=== PATIENT | female | born 1980 | race Caucasian/White ===

== ENCOUNTER 2016-11-20 12:41 | Emergency (ER) | payer MEDICAID ==
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
[2016-11-20] MEDS ORDERED: OXYCODONE-ACETAMINOPHEN 5-325 MG TABLET PO ONE (14:29)
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
[2016-11-20 15:35] VITALS: BP 105/70
== END 2016-11-20 15:52 | disposition home or self-care (01) ==
LOC: ER 12:41
DX: S05.11XA Contusion of eyeball and orbital tissues, right eye, initial encounter (principal); S16.1XXA Strain of muscle, fascia and tendon at neck level, initial encounter; M54.9 Dorsalgia, unspecified; R52 Pain, unspecified; R51 Headache; Y09 Assault by unspecified means; F17.210 Nicotine dependence, cigarettes, uncomplicated
CPT/HCPCS: 70450; 71020; 72125; 99284

== ENCOUNTER 2017-04-27 04:43 | Emergency (ER) | payer MEDICAID ==
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
[2017-04-27] MEDS ORDERED: KETOROLAC TROMETHAMINE INJ/PF 30 MG/1 ML SDV IV ONE (05:47)
--- NOTE | 2017-04-27 05:48 | RADIOLOGY REPORT (SQ) ---
EXAM DESCRIPTION: SHOULDER RIGHT 2 OR MORE VIEWS COMPLETED DATE/TIME: 04/27/2017 5:30 am REASON FOR STUDY: INJURY COMPARISON: 320 NUMBER OF VIEWS: Three views. TECHNIQUE: Internal rotation, external rotation, and Y view images acquired of the right shoulder. LIMITATIONS: None. FINDINGS: MINERALIZATION: Normal. BONES: 0.5 cm lytic lesion of the right distal clavicle at the acromioclavicular joint new compared w ith prior radiographs from 10/18/2010. No evidence of fracture dislocation. JOINTS: No dislocation. VISUALIZED LUNGS AND RIBS: No pneumothorax. No rib fracture. SOFT TISSUES: No radiopaque foreign body. OTHER: No other significant finding. IMPRESSION: 0.5 cm lucency of the distal right clavicle which may indicate posttraumatic osteolysis, subchondral degenerative cyst, or arthritic erosion. TECHNICAL DOCUMENTATION: JOB ID: [id number] [email or web address]- All Rights Reserved
[2017-04-27] MEDS ORDERED: KETOROLAC TROMETHAMINE INJ/PF 30 MG/1 ML SDV IM ONE (05:59)
[2017-04-27 06:11] VITALS: BP 127/83
== END 2017-04-27 06:11 | disposition home or self-care (01) ==
LOC: ER 04:43
DX: M25.511 Pain in right shoulder (principal); Y09 Assault by unspecified means
CPT/HCPCS: 99283; 96372; 73030; L3650; J1885

== ENCOUNTER 2017-12-05 18:52 | Emergency (ER) | payer MEDICAID ==
[2017-12-05] MEDS ORDERED: ONDANSETRON 4 MG TAB.RAPDIS PO ONE (20:33)
--- NOTE | 2017-12-05 20:35 | ER Document Report ---
ED Medical Screen (RME) - General Chief Complaint: Lower Abdominal Pain Stated Complaint: PELVIC PAIN Time Seen by Provider: 12/05/17 20:31 Mode of Arrival: Medic Information source: Patient Notes: Patient states that she was doing jumping jacks this evening and had a sudden onset of sharp lower pelvic pain around 6 PM. Patient reports nausea. Patient states the pain radiates to right lower back area. Patient denies any vaginal bleeding or urinary symptoms. Patient does report that she has a history of a cervical tumor which she is supposed to have a hysterectomy. I have greeted and performed a rapid initial assessment of this patient. A comprehensive ED assessment and evaluation of the patient, analysis of test results and completion of the medical decision making process will be conducted by additional ED providers. TRAVEL OUTSIDE OF THE [place] IN LAST 30 DAYS: No - Related Data Allergies/Adverse Reactions: No Known Allergies Allergy (Verified 12/05/17 18:54) Past Medical History - Social History Frequency of alcohol use: None - Past Medical History Cardiac Medical History: Denies: Hx Coronary Artery Disease, Hx Heart Attack, Hx Hypertension Pulmonary Medical History: Denies: Hx Asthma, Hx Bronchitis, Hx COPD, Hx Pneumonia Neurological Medical History: Reports: Hx Migraine, Hx Seizures - last seizure . Denies: Hx Cerebrovascular Accident Renal/ Medical History: Denies: Hx Peritoneal Dialysis Musculoskeltal Medical History: Denies Hx Arthritis Skin Medical History: Denies Hx MRSA Psychiatric Medical History: Reports: Hx Anxiety, Hx Depression Past Surgical History: Reports: Hx Cholecystectomy, Hx Hysterectomy, Hx Orthopedic Surgery - R foot - Immunizations Immunizations up to date: Yes Hx Diphtheria, Pertussis, Tetanus Vaccination: Yes - more than five years Physical Exam - Vital signs Vitals: Temp Pulse Resp BP Pulse Ox 98.5 F 91 15 132/92 H 97 12/05/17 18:56 12/05/17 18:56 12/05/17 18:56 12/05/17 18:56 12/05/17 18:56 - Abdominal Tenderness: Tender - Lower pelvic tenderness Course - Vital Signs Vital signs: Temp Pulse Resp BP Pulse Ox 98.5 F 91 15 132/92 H 97 12/05/17 18:56 12/05/17 18:56 12/05/17 18:56 12/05/17 18:56 12/05/17 18:56
[2017-12-05] MEDS ORDERED: OXYCODONE-ACETAMINOPHEN 5-325 MG TABLET PO ONE (20:43)
[2017-12-05 21:03] LABS: ABSOLUTE BASOPHILS # (AUTO) 0.1 10^3/uL (0.0-0.2); ABSOLUTE EOSINOPHILS # (AUTO) 0.4 10^3/uL (0.0-0.6); ABSOLUTE MONOCYTES (AUTO) 0.8 10^3/uL (0.1-1.4); ABSOLUTE NEUT (AUTO) 9.1 10^3/uL (1.7-8.2); BASOPHILS % (AUTO) 0.6 % (0-2); EOSINOPHILS % (AUTO) 2.5 % (0-6); HEMATOCRIT 46.4 % (36.0-47.0); HEMOGLOBIN 15.8 g/dL (12.0-15.5); LYMPHOCYTES % (AUTO) 32.3 % (13-45); MEAN CORPUSCULAR HEMOGLOBIN 30.3 pg (27.0-33.4); MEAN CORPUSCULAR HGB CONC 34.1 g/dL (32.0-36.0); MEAN CORPUSCULAR VOLUME 89 fl (80-97); MONOCYTES % (AUTO) 5.1 % (3-13); PLATELET COUNT 344 10^3/uL (150-450); RED BLOOD COUNT 5.23 10^6/uL (3.72-5.28); RED CELL DISTRIBUTION WIDTH 13.1 % (11.5-14.0); SEGMENTED NEUTROPHILS % (AUTO) 59.5 % (42-78); TOTAL CELLS COUNTED % (AUTO) 100 %; WHITE BLOOD COUNT 15.3 10^3/uL (4.0-10.5)
[2017-12-05 21:25] LABS: ALANINE AMINOTRANSFERASE 54 U/L (9-52); ALBUMIN 4.1 g/dL (3.5-5.0); ALKALINE PHOSPHATASE 72 U/L (38-126); ANION GAP 11 (5-19); ASPARTATE AMINO TRANSFERASE 62 U/L (14-36); BILIRUBIN,DIRECT 0.2 mg/dL (0.0-0.4); BILIRUBIN,TOTAL 0.2 mg/dL (0.2-1.3); BLOOD UREA NITROGEN 7 mg/dL (7-20); CALCIUM 10.3 mg/dL (8.4-10.2); CARBON DIOXIDE 23 mmol/L (22-30); CHLORIDE 107 mmol/L (98-107); GLUCOSE 89 mg/dL (75-110); POTASSIUM 4.6 mmol/L (3.6-5.0); SODIUM 141.4 mmol/L (137-145); TOTAL PROTEIN 6.7 g/dL (6.3-8.2)
[2017-12-05] MEDS ORDERED: FENTANYL CITRATE INJ/PF 100 MCG/2 ML AMPUL IM ONE (22:56)
--- NOTE | 2017-12-05 23:01 | ER Document Report ---
ED General - General Chief Complaint: Lower Abdominal Pain Stated Complaint: PELVIC PAIN Time Seen by Provider: 12/05/17 20:31 Mode of Arrival: Medic Information source: Patient Notes: 37 yr old female presents with lwoer abd pain after doing jumping florinda and feeling a tearing snesaiton in the lwoer abdomen. pt dneies any fevers or chills , notes pain with range of motion denies any other trauma pt notes hx of nonmalignant cervical tumor TRAVEL OUTSIDE OF THE [place] IN LAST 30 DAYS: No - HPI Onset: Just prior to arrival Onset/Duration: Sudden Quality of pain: Sharp Severity: Moderate Pain Level: 4 Associated symptoms: Body/muscle aches Exacerbated by: Movement, Walking Relieved by: Denies Similar symptoms previously: No Recently seen / treated by doctor: No - Related Data Allergies/Adverse Reactions: No Known Allergies Allergy (Verified 12/05/17 18:54) Past Medical History - General Information source: Patient - Social History Smoking Status: Current Every Day Smoker Cigarette use (# per day): Yes Chew tobacco use (# tins/day): No Smoking Education Provided: No Frequency of alcohol use: None Family History: Reviewed & Not Pertinent Patient has suicidal ideation: No Patient has homicidal ideation: No - Past Medical History Cardiac Medical History: Denies: Hx Coronary Artery Disease, Hx Heart Attack, Hx Hypertension Pulmonary Medical History: Denies: Hx Asthma, Hx Bronchitis, Hx COPD, Hx Pneumonia Neurological Medical History: Reports: Hx Migraine, Hx Seizures - last seizure . Denies: Hx Cerebrovascular Accident Renal/ Medical History: Denies: Hx Peritoneal Dialysis Musculoskeltal Medical History: Denies Hx Arthritis Skin Medical History: Denies Hx MRSA Psychiatric Medical History: Reports: Hx Anxiety, Hx Depression Past Surgical History: Reports: Hx Cholecystectomy, Hx Hysterectomy, Hx Orthopedic Surgery - R foot - Immunizations Immunizations up to date: Yes Hx Diphtheria, Pertussis, Tetanus Vaccination: Yes - more than five years Review of Systems - Review of Systems Notes: REVIEW OF SYSTEMS: CONSTITUTIONAL : Denies fever, chills, or sweats. Denies recent illness. EENT: Denies eye, ear, throat, or mouth pain or symptoms. Denies nasal or sinus congestion or discharge. Denies throat, tongue, or mouth swelling or difficulty swallowing. CARDIOVASCULAR: Denies chest pain. Denies palpitations or racing or irregular heart beat. Denies ankle edema. RESPIRATORY: Denies cough, cold, or chest congestion. Denies shortness of breath, difficulty breathing, or wheezing. GASTROINTESTINAL: Admits to bilateral lower quadrant abdominal pain GENITOURINARY: Denies difficulty urinating, painful urination, burning, frequency, blood in urine, or discharge. FEMALE GENITOURINARY: Denies vaginal bleeding, heavy or abnormal periods, irregular periods. Denies vaginal discharge or odor. MUSCULOSKELETAL: Denies back or neck pain or stiffness. Denies joint pain or swelling. SKIN: Denies rash, lesions or sores. HEMATOLOGIC : Denies easy bruising or bleeding. LYMPHATIC: Denies swollen, enlarged glands. NEUROLOGICAL: Denies confusion or altered mental status. Denies passing out or loss of consciousness. Denies dizziness or lightheadedness. Denies headache. Denies weakness or paralysis or loss of use of either side. Denies problems with gait or speech. Denies sensory loss, numbness, or tingling. Denies seizures. PSYCHIATRIC: Denies anxiety or stress. Denies depression, suicidal ideation, or homicidal ideation. ALL OTHER SYSTEMS REVIEWED AND NEGATIVE. PHYSICAL EXAMINATION: GENERAL: Well-appearing, well-nourished and in no acute distress. HEAD: Atraumatic, normocephalic. EYES: Pupils equal round and reactive to light, extraocular movements intact, conjunctiva are normal. ENT: Nares patent, oropharynx clear without exudates. Moist mucous membranes. NECK: Normal range of motion, supple without lymphadenopathy LUNGS: Breath sounds clear to auscultation bilaterally and equal. No wheezes rales or rhonchi. HEART: Regular rate and rhythm without murmurs ABDOMEN: Soft, tender lower abd no pelvic pain Female : deferred Musculoskeletal: Normal range of motion, no pitting or edema. No cyanosis. NEUROLOGICAL: Cranial nerves grossly intact. Normal speech, normal gait. Normal sensory, motor exams PSYCH: Normal mood, normal affect. SKIN: Warm, Dry, normal turgor, no rashes or lesions noted. Dictation was performed using [employer] recognition software -: Yes ROS unobtainable due to patient's medical condition Physical Exam - Vital signs Vitals: Temp Pulse Resp BP Pulse Ox 98.5 F 91 15 132/92 H 97 12/05/17 18:56 12/05/17 18:56 12/05/17 18:56 12/05/17 18:56 12/05/17 18:56 Course - Re-evaluation Re-evalutation: 12/05/17 23:01 Patient's presentation is most consistent with a muscle tear given the traumatic injury. She overall does appear to have pain, and given pain control , ultrasound is pending to evaluate for the cervical tumor but this does not appear to be the cause of the patient's symptoms 12/06/17 04:59 u/s report consistent with nabothian cyst, otherwise she is stable, report given to patient by cell phone After performing a Medical Screening Examination, I estimate there is LOW risk for ACUTE APPENDICITIS, BOWEL OBSTRUCTION, ACUTE CHOLECYSTITIS, PERFORATED DIVERTICULITIS, INCARCERATED HERNIA, PANCREATITIS, PELVIC INFLAMMATORY DISEASE, PERFORATED ULCER, ECTOPIC , or TUBO-OVARIAN ABSCESS, thus I consider the discharge disposition reasonable. Also, there is no evidence or peritonitis , sepsis, or toxicity. I have reevaluated this patient multiple times and no significant life threatening changes are noted. The patient and I have discussed the diagnosis and risks, and we agree with discharging home with close follow-up with the understanding that symptoms and presentations can change. We also discussed returning to the Emergency Department immediately if new or worsening symptoms occur. We have discussed the symptoms which are most concerning (e.g., bloody stool, fever, changing or worsening pain, vomiting) that necessitate immediate return. - Vital Signs Vital signs: Temp Pulse Resp BP Pulse Ox 98.5 F 66 16 114/74 95 12/05/17 18:56 12/06/17 01:00 12/06/17 01:00 12/06/17 01:00 12/06/17 01:00 - Laboratory Result Diagrams: 12/05/17 20:40 12/05/17 20:40 Laboratory results interpreted by me: 12/05/17 12/05/17 20:40 20:40 WBC 15.3 H Hgb 15.8 H Absolute Neutrophils 9.1 H Absolute Lymphocytes 5.0 H Calcium 10.3 H AST 62 H ALT 54 H - Diagnostic Test Radiology reviewed: Image reviewed - Ultrasound transvaginal consistent with nabothian cyst, Reports reviewed Discharge - Discharge Clinical Impression: Nabothian cyst Abdominal pain Qualifiers: Abdominal location: lower abdomen, unspecified Qualified Code(s): R10.30 - Lower abdominal pain, unspecified Condition: Stable Disposition: HOME, SELF-CARE Instructions: Abdominal Pain ([facility]) Additional Instructions: At this time the results of your ultrasound did not back, you wish to leave prior to the results, I will treat you as if it is a muscle injury, return immediately if there is any fevers or any other concerns Prescriptions: Oxycodone HCl/Acetaminophen [Percocet 5-325 mg Tablet] 1 - 2 tab PO Q4H PRN #20 tablet PRN Reason:
[2017-12-06 01:10] VITALS: BP 114/74
--- NOTE | 2017-12-06 02:45 | RADIOLOGY REPORT (SQ) ---
EXAM DESCRIPTION: U/S NON OB PEL TV W/DOPPLER COMPLETED DATE/TIME: 12/05/2017 10:20 pm REASON FOR STUDY: pelvic pain, hx cervical tumor COMPARISON: None. TECHNIQUE: Dynamic and static grayscale images acquired of the pelvis via transvaginal approach and recorded on PACS. Additional selected color Doppler and spectral images recorded. LIMITATIONS: None. FINDINGS: UTERUS: Contour normal. No mass. ENDOMETRIAL STRIPE: No focal or generalized thickening. No masses. CERVIX: Nabothian cysts. RIGHT ADNEXUM: No abnormal masses. RIGHT OVARY AND DOPPLER: Ovary not visualize LEFT ADNEXUM: No abnormal masses. LEFT OVARY AND DOPPLER: Ovary not visualized FREE FLUID: None noted. OTHER: No other significant finding. MEASUREMENTS: UTERUS: 9.6 x 5.5 x 6.5 cm ENDOMETRIAL STRIPE: 6.8 mm RIGHT OVARY: Not visualized. LEFT OVARY: Not visualized. IMPRESSION: Nabothian cysts. Ovaries not seen. Otherwise normal. TECHNICAL DOCUMENTATION: JOB ID: [id number] [employer]- All Rights Reserved Reading location - IP/workstation name: [email or web address]
== END 2017-12-06 01:13 | disposition home or self-care (01) ==
LOC: ER 18:52
DX: N88.8 Other specified noninflammatory disorders of cervix uteri (principal); R10.31 Right lower quadrant pain; R10.32 Left lower quadrant pain; F17.210 Nicotine dependence, cigarettes, uncomplicated
CPT/HCPCS: 99284; 96372; 36415; 84703; 85025; 80053; 76830; 93976; S0119; J3010

== ENCOUNTER 2019-04-15 16:27 | Emergency (ER) | payer MEDICAID ==
[2019-04-15] MEDS ORDERED: ACETAMINOPHEN 325 MG TABLET PO ONE (17:13)
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
[2019-04-15] MEDS ORDERED: KETOROLAC TROMETHAMINE 60 MG/2 ML SDV IM ONE (19:14)
[2019-04-15] MEDS ORDERED: HYDROCODONE/ACETAMINOPHEN 5-325 MG TABLET PO ONE (19:14)
[2019-04-15] MEDS ORDERED: DEXAMETHASONE SOD PHOS INJ 10 MG/1 ML VIAL IM ONE (19:14)
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
[2019-04-15 19:29] VITALS: BP 108/70
== END 2019-04-15 19:41 | disposition home or self-care (01) ==
LOC: ER 16:27
DX: S00.83XA Contusion of other part of head, initial encounter (principal); M54.5 Low back pain; G89.29 Other chronic pain; M54.32 Sciatica, left side; Y04.0XXA Assault by unarmed brawl or fight, initial encounter; Z87.891 Personal history of nicotine dependence
CPT/HCPCS: 70486; J3490; 99284; J1100; J1885

== ENCOUNTER 2019-05-11 08:22 | Emergency (ER) | payer SELFPAY ==
[2019-05-11] MEDS ORDERED: ACETAMINOPHEN 325 MG TABLET PO ONE (09:53)
[2019-05-11] MEDS ORDERED: IBUPROFEN 600 MG TABLET PO ONE (09:53)
[2019-05-11] MEDS ORDERED: BENZONATATE 100 MG CAPSULE PO ONE (09:54)
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
[2019-05-11] MEDS ORDERED: HYDROCODONE/ACETAMINOPHEN 5-325 MG (6 TAB/ER DISP) PO PRN (10:58)
[2019-05-11 11:13] VITALS: BP 136/86
== END 2019-05-11 11:08 | disposition home or self-care (01) ==
LOC: ER 08:22
DX: R07.81 Pleurodynia (principal); J34.89 Other specified disorders of nose and nasal sinuses; R05 Cough; Y04.2XXA Assault by strike against or bumped into by another person, initial encounter; F17.200 Nicotine dependence, unspecified, uncomplicated; Z90.49 Acquired absence of other specified parts of digestive tract; Z90.710 Acquired absence of both cervix and uterus
CPT/HCPCS: 99283

== ENCOUNTER 2019-05-30 13:48 | Emergency (ER) | payer MEDICAID ==
--- NOTE | 2019-05-30 14:03 | ER Document Report ---
ED Medical Screen (RME) - General Stated Complaint: SPIDER BITE Time Seen by Provider: 05/30/19 13:58 Primary Care Provider: JASVIR OLEARY MD [Primary Care Provider] - Follow up as needed Mode of Arrival: Ambulatory Information source: Patient Notes: 38-year-old patient with history of PTSD presents emergency department with redness in between the webs of her second and third digit on her left hand and also sore to her right palm. Patient reports spider bites but never saw anything bite her. Reports the erythema on her left hand was swollen to begin with but no more swelling yet reports erythema is worse. Denies fever vomiting diarrhea. Reports sore on her right hand is better. Patient has good radial pulses no obvious pustule noted no swelling. Cap refill less than 3 seconds. Denies IV drug use. I have greeted and performed a rapid initial assessment of this patient. A comprehensive ED assessment and evaluation of the patient, analysis of test results and completion of the medical decision making process will be conducted by additional ED providers. Dictation of this chart was performed using voice recognition software; therefore, there may be some unintended grammatical errors. TRAVEL OUTSIDE OF THE [place] IN LAST 30 DAYS: No - Related Data Allergies/Adverse Reactions: No Known Allergies Allergy (Verified 05/30/19 13:59) Past Medical History - Past Medical History Cardiac Medical History: Denies: Hx Coronary Artery Disease, Hx Heart Attack, Hx Hypertension Pulmonary Medical History: Denies: Hx Asthma, Hx Bronchitis, Hx COPD, Hx Pneumonia Neurological Medical History: Reports: Hx Migraine, Hx Seizures - last seizure 2019. Denies: Hx Cerebrovascular Accident Renal/ Medical History: Denies: Hx Peritoneal Dialysis GI Medical History: Reports: Hx Colonoscopy, Hx Endoscopy Musculoskeltal Medical History: Reports Hx Arthritis, Reports Hx Musculoskeletal Deformity - ddd, sciatica, Reports Hx Musculoskeletal Trauma Skin Medical History: Denies Hx MRSA Psychiatric Medical History: Reports: Hx Anxiety, Hx Depression, Hx Post Traumat ic Stress Disorder Past Surgical History: Reports: Hx Cholecystectomy, Hx Hysterectomy, Hx Orthopedic Surgery - R foot - Immunizations Immunizations up to date: Yes Hx Diphtheria, Pertussis, Tetanus Vaccination: Yes Doctor's Discharge - Discharge Referrals: JASVIR OLEARY MD [Primary Care Provider] - Follow up as needed
[2019-05-30] MEDS ORDERED: DOXYCYCLINE HYCLATE 100 MG TABLET PO ONE (14:25)
--- NOTE | 2019-05-30 14:31 | ER Document Report ---
ED Hand/Wrist Injury - General Chief Complaint: Hand Pain Stated Complaint: SPIDER BITE Time Seen by Provider: 05/30/19 13:58 Primary Care Provider: JASVIR OLEARY MD [Primary Care Provider] - Follow up as needed Mode of Arrival: Ambulatory Information source: Patient Notes: 38-year-old female presented to ED with history of PTSD comes to the ED for redness between the second and third finger on the left hand and also a sore red spot on the right palm. She states that a spider bit her but she never saw the spider or anything that better. She states she does have some redness going up her left hand started to go into her wrist. She states there was some swelling but there is no swelling now. She states that the redness is much worse. There is no real redness going any higher than her wrist. Patient has good pedal pulses bilaterally. She denies any drug use she denies any IV drug use and she states she wishes people would quit asking her about IV drug use just because she has sores to her hand and fingers TRAVEL OUTSIDE OF THE [place] IN LAST 30 DAYS: No - HPI Injury to: Hand - Right palm and between the second and third finger on the left hand. And said that her Onset: Other - Several days Where: Home Timing: Still present Quality of pain: Achy Severity: Moderate Pain Level: 3 Context: Swelling - Related Data Allergies/Adverse Reactions: No Known Allergies Allergy (Verified 05/30/19 13:59) Past Medical History - General Information source: Patient - Social History Smoking Status: Current Every Day Smoker Cigarette use (# per day): Yes - 1/2-1 ppd Chew tobacco use (# tins/day): No Smoking Education Provided: Yes - 4 min Frequency of alcohol use: None Drug Abuse: None Lives with: Family - daughter Family History: Reviewed & Not Pertinent Patient has suicidal ideation: No Patient has homicidal ideation: No - Past Medical History Cardiac Medical History: Reports: None Pulmonary Medical History: Reports: None EENT Medical History: Reports: None Neurological Medical History: Reports: Hx Migraine, Hx Seizures - last seizure 2018 Endocrine Medical History: Reports: None Renal/ Medical History: Reports: None Malignancy Medical History: Reports: None GI Medical History: Reports: Hx Colonoscopy, Hx Endoscopy Musculoskeletal Medical History: Reports Hx Arthritis, Reports Hx Musculoskeletal Deformity - ddd, sciatica, Reports Hx Musculoskeletal Trauma Skin Medical History: Reports None Psychiatric Medical History: Reports: Hx Anxiety, Hx Depression, Hx Post Traumatic Stress Disorder Traumatic Medical History: Reports: None Infectious Medical History: Reports: None Past Surgical History: Reports: Hx Cholecystectomy, Hx Hysterectomy, Hx Orthopedic Surgery - R foot - Immunizations Immunizations up to date: Yes Hx Diphtheria, Pertussis, Tetanus Vaccination: Yes Review of Systems - Review of Systems Constitutional: No symptoms reported EENT: No symptoms reported Cardiovascular: No symptoms reported Respiratory: No symptoms reported Gastrointestinal: No symptoms reported Genitourinary: No symptoms reported Female Genitourinary: No symptoms reported Musculoskeletal: No symptoms reported Skin: No symptoms reported Hematologic/Lymphatic: No symptoms reported Neurological/Psychological: No symptoms reported -: Yes All other systems reviewed and negative Physical Exam - Vital signs Interpretation: Normal - General General appearance: Appears well, Alert - HEENT Head: Normocephalic, Atraumatic Eyes: Normal Pupils: PERRL - Respiratory Respiratory status: No respiratory distress Chest status: Nontender Breath sounds: Normal Chest palpation: Normal - Cardiovascular Rhythm: Regular Heart sounds: Normal auscultation Murmur: No - Abdominal Inspection: Normal Distension: No distension Bowel sounds: Normal Tenderness: Nontender Organomegaly: No organomegaly - Back Back: Normal, Nontender - Extremities General upper extremity: Normal inspection, Normal ROM, Normal temperature General lower extremity: Normal inspection, Nontender, Normal color, Normal ROM, Normal temperature, Normal weight bearing. No: Angela's sign Hand: Tender, No evidence of human bite, No evidence of FB, Swelling, Other - Red scabbed insect bite to the right hand and a red swollen insect bite to the left hand between 2 fingers. No red streaking no signs of other infections. - Neurological Neuro grossly intact: Yes Cognition: Normal Orientation: AAOx4 Fleming Coma Scale Eye Opening: Spontaneous Fleming Coma Scale Verbal: Oriented Sujit Coma Scale Motor: Obeys Commands Fleming Coma Scale Total: 15 Speech: Normal Motor strength normal: LUE, RUE, LLE, RLE Sensory: Normal - Psychological Associated symptoms: Normal affect, Normal mood - Skin Skin Temperature: Warm Skin Moisture: Dry Skin Color: Normal Course - Re-evaluation Re-evalutation: 05/30/19 14:33 Instructed patient I will write her some doxycycline that she would not be able to go out into the sun because it can cause sunburn. She requested narcotics so that she can sleep due to the pain in the insect bites. I have informed her that she does not need narcotics for insect bites that are very small red and are not traveling and are not grossly infected. I did give her some doxycycline for the ones that are red. I have given her instructions to use Tylenol Motrin. She became very upset and told me that she was not a drug addict she cannot sleep due to the pain. I informed her she could take Tylenol Motrin and take the antibiotics I have prescribed. I came to write all of her discharge papers and she came up and told the nurse that I was looking for track pineda and she did not want my papers, she was going to leave and she left without her antibiot ic prescription and her dose of antibiotics. I have given the discharge instructions and the antibiotic prescription to the nurse and asked her to call the patient and have her come back and get her prescription for the antibiotics. Discharge - Discharge Clinical Impression: Insect bite of left hand Qualifiers: Encounter type: initial encounter Qualified Code(s): S60.562A - Insect bite (nonvenomous) of left hand, initial encounter Condition: Stable Disposition: HOME, SELF-CARE Additional Instructions: Insect Bites You have been bitten by an insect. These bites can cause two types of swelling: an initial swelling due to insect saliva or injected poison, and a late reaction due to your body's allergic reaction. This initial local reaction may be uncomfortable but is not dangerous. Often there's an itchy "hive" at the bite location. This is treated with antihistamines, cold compresses, and resting the affected body part. The later reaction often develops about the second day. The entire area becomes very swollen, red, itchy, and tender. This is an allergic reaction. Your body is attacking the leftover insect saliva or venom. This type of allergy is unpleasant, but not dangerous. We treat this swelling with cortisone-type medicine. Sometimes we use antibiotics if we're worried about infection. Antihistamines help with the itch. If you develop a fever, chills, a red streak, or swollen glands in the area of the bite, infection may be starting. Return at once. Doxycycline Doxycycline (Vibramycin, Doryx) is an antibiotic of the tetracycline fam dom. This type of drug is useful for infections of the respiratory tract and genital tract, and is sometimes used for intestinal infections. Unlike most tetracyclines, doxycycline can be taken with food. It is longer acting, and (usually) less prone to side effects than regular tetracycline. Tetracycline antibiotics can stain immature teeth and SHOULD NOT BE TAKEN BY CHILDREN, NURSING MOTHERS, OR WOMEN. Tetracyclines can make you more prone to sunburn. Abdominal cramping, nausea, and diarrhea are occasional side effects. Women may experience vaginal yeast infections. Call the doctor at once if you develop hives, itching, shortness of breath, or lightheadedness. Acetaminophen Acetaminophen may be taken for pain relief or fever control. It's much safer than aspirin, offering a wider range of "safe" dosages. It is safe during . Some brand names are Tylenol, Panadol, Datril, Anacin 3, Tempra, and Liquiprin. Acetaminophen can be repeated every four hours. The following are maximum recommended dosages: WEIGHT Dose Drops Elixir Chewable(80mg) (LBS.) drprs=droppers tsp=teaspoon 6 40 mg .4 ml (1/2) 6-11 80 mg .8 ml (full) 1/2 tsp 1 tab 12-16 120 mg 1 1/2 drprs 3/4 tsp 1 1/2 tabs 17-23 160 mg 2 drprs 1 tsp 2 tabs 24-30 240 mg 3 drprs 1 1/2 tsp 3 tabs 30-35 320 mg 2 tsp 4 tabs 36-41 360 mg 2 1/4 tsp 4 1/2 tabs 42-47 400 mg 2 1/2 tsp 5 tabs 48-53 480 mg 3 tsp 6 tabs 54-59 520 mg 3 1/4 tsp 6 1/2 tabs 60-64 560 mg 3 1/2 tsp 7 tabs 65-70 600 mg 3 3/4 tsp 7 1/2 tabs 71-76 640 mg 4 tsp 8 tabs 77-82 720 mg 4 1/2 tsp 9 tabs 83-88 800 mg 5 tsp 10 tabs >89 pounds or adults 650 mg to 900 mg Acetaminophen can be repeated every four hours. Maximum daily dose not to exceed 4000 mg. These maximum recommended dosages are slightly higher than the dosages written on the product container, but these dosages are very safe and well below the toxic dosage for acetaminophen. Ibuprofen Ibuprofen is an excellent, safe drug for pain control. In addition, it has potent antiinflammatory effects which are beneficial, especially in the treatment of injuries, arthritis, or tendonitis. It's best to take ibuprofen with food. Persons with ulcer disease or allergy to aspirin should notify their physician of this before taking ibuprofen. Take the medication exactly as prescribed. Don't take additional doses unless instructed to do so by your doctor. If you develop wheezing, shortness of breath, hives, faintness, stomach pain, vomiting, or dark black stools, return for re-evaluation at once. FOLLOW-UP CARE: If you have been referred to a physician for follow-up care, call the physicians office for an appointment as you were instructed or within the next two days. If you experience worsening or a significant change in your symptoms, notify the physician immediately or return to the Emergency Department at any time for re-evaluation. Prescriptions: Doxycycline Hyclate 100 mg PO BID #20 capsule Forms: Elevated Blood Pressure Referrals: JASVIR OLEARY MD [Primary Care Provider] - Follow up as needed
== END 2019-05-30 14:30 | disposition home or self-care (01) ==
LOC: ER 13:48
DX: S60.561A Insect bite (nonvenomous) of right hand, initial encounter (principal); W57.XXXA Bitten or stung by nonvenomous insect and other nonvenomous arthropods, initial encounter; Y92.009 Unspecified place in unspecified non-institutional (private) residence as the place of occurrence of the external cause; F17.210 Nicotine dependence, cigarettes, uncomplicated

== ENCOUNTER 2020-05-01 03:37 | Emergency (ER) | payer MEDICAID ==
[2020-05-01 05:00] LABS: APPEARANCE,URINE CLEAR; BILIRUBIN,URINE NEGATIVE (NEGATIVE); COLOR,URINE STRAW; GLUCOSE, URINE NEGATIVE (NEGATIVE); KETONES,URINE NEGATIVE (NEGATIVE); LEUKOCYTE ESTERASE,URINE NEGATIVE (NEGATIVE); NITRITE,URINE NEGATIVE (NEGATIVE); PROTEIN,URINE NEGATIVE (NEGATIVE); URINE SPECIFIC GRAVITY 1.005; UROBILINOGEN,URINE NEGATIVE mg/dL (<2.0)
[2020-05-01] MEDS ORDERED: KETOROLAC TROMETHAMINE INJ/PF 30 MG/1 ML SDV IV ONE ×2 (05:30→06:58)
[2020-05-01] MEDS ORDERED: NORMAL SALINE 500 ML IV ONE (05:30)
--- NOTE | 2020-05-01 05:31 | ER Document Report ---
ED General - General Chief Complaint: Wound Infection Stated Complaint: BODY ACHE/HEADACHE Time Seen by Provider: 05/01/20 05:17 Primary Care Provider: JASVIR OLEARY MD [Primary Care Provider] - Follow up in 3-5 days TRAVEL OUTSIDE OF THE [place] IN LAST 30 DAYS: No - HPI Notes: 39-year-old female to the emergency department with complaints of headache, bilateral hip pain, back pain, general malaise for the past 24 hours. She states she just got a [place] for mental health. She states that they were treating her with a urinary tract infection but they did not give her a prescription to go home with. She denies any urinary complaints. She states that she is concerned that the urinary tract infection is getting worse. She denies any nausea, vomiting, diarrhea. Denies any abdominal pain. She denies any fevers, cough. She states that she had a rapid COVID Nathan and it was negative. She denies being around anybody else is been sick that she knows of. She denies any SI, HI, hallucinations. She does admit to multiple spider bites to her hands. She went to [place] to have them looked at about 4 days ago before she went to [place]. She has been applying topical antibiotic ointment to it and they have been improving. She denies any streaking redness. She denies any chest pain, shortness of breath. - Related Data Allergies/Adverse Reactions: No Known Allergies Allergy (Verified 05/30/19 13:59) Home Medications: gabapentin, klonipin Past Medical History - General Information source: Patient - Social History Smoking Status: Current Every Day Smoker Family History: Reviewed & Not Pertinent - Past Medical History Cardiac Medical History: Denies: Hx Coronary Artery Disease, Hx Heart Attack, Hx Hypertension Pulmonary Medical History: Denies: Hx Asthma, Hx Bronchitis, Hx COPD, Hx Pneumonia Neurological Medical History: Reports: Hx Migraine, Hx Seizures - last seizure 2019. Denies: Hx Cerebrovascular Accident Renal/ Medical History: Denies: Hx Peritoneal Dialysis GI Medical History: Reports: Hx Colonoscopy, Hx Endoscopy Musculoskeletal Medical History: Reports Hx Arthritis, Reports Hx Musculoskeletal Deformity - ddd, sciatica, Reports Hx Musculoskeletal Trauma Skin Medical History: Denies Hx MRSA Psychiatric Medical History: Reports: Hx Anxiety, Hx Depression, Hx Post Traumatic Stress Disorder Past Surgical History: Reports: Hx Cholecystectomy, Hx Hysterectomy, Hx Orthopedic Surgery - R foot - Immunizations Immunizations up to date: Yes Hx Diphtheria, Pertussis, Tetanus Vaccination: Yes Review of Systems - Review of Systems Constitutional: Malaise. denies: Chills, Diaphoresis, Fever EENT: denies: Nose congestion, Nose discharge, Sinus discharge Cardiovascular: denies: Chest pain, Palpitations, Dyspnea, Syncope, Dizziness, Lightheaded Respiratory: denies: Cough, Short of breath Gastrointestinal: denies: Abdominal pain, Diarrhea, Nausea, Vomiting Genitourinary: denies: Frequency, Flank pain, Hematuria, Incontinence Musculoskeletal: Back pain, Muscle pain Skin: No symptoms reported Neurological/Psychological: Headaches -: Yes All other systems reviewed and negative Physical Exam - Vital signs Vitals: Temp Pulse Resp BP Pulse Ox 98 F 74 20 114/73 98 05/01/20 04:05 05/01/20 04:05 05/01/20 04:05 05/01/20 04:05 05/01/20 04:05 Interpretation: Normal - General General appearance: Appears well, Alert In distress: None - HEENT Head: Normocephalic, Atraumatic Eyes: Normal Pupils: PERRL Sinus: Normal Nasal: Normal Mouth/Lips: Normal Mucous membranes: Normal Pharynx: Normal. No: Uvular edema, Potential airway comprom. Neck: Normal, Supple - Respiratory Respiratory status: No respiratory distress Chest status: Nontender Breath sounds: Normal. No: Rales, Rhonchi, Wheezing Chest palpation: Normal - Cardiovascular Rhythm: Regular Heart sounds: Normal auscultation Murmur: No Notes: No pitting edema - Abdominal Inspection: Normal Distension: No distension Bowel sounds: Normal Tenderness: Nontender Organomegaly: No organomegaly - Back Back: Normal, Nontender, CVA tenderness - Extremities General upper extremity: Normal inspection, Nontender, Normal color, Normal ROM, Normal temperature General lower extremity: Normal inspection, Nontender, Normal color, Normal ROM, Normal temperature, Normal weight bearing - Neurological Neuro grossly intact: Yes Cognition: Normal Orientation: AAOx4 Sujit Coma Scale Eye Opening: Spontaneous [place] Coma Scale Verbal: Oriented Sujit Coma Scale Motor: Obeys Commands Sujit Coma Scale Total: 15 Speech: Normal Cranial nerves: Normal. No: Facial palsy, Gaze palsy, Sensory deficit, Tongue deviation Cerebellar coordination: Normal. 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 No: Pronator drift Sensory: Normal - Psychological Associated symptoms: Normal affect, Normal mood, Other - Denies SI or HI. No: Auditory hallucinations, Tactile hallucinations, Visual hallucinations - Skin Skin Temperature: Warm Skin Moisture: Dry Skin irregularity: Rash - There are manageable healing insect bites to the hands. Without any streaking erythema, abscess, purulent drainage. They are nontender to palpation. Patient states they are a lot better Course - Re-evaluation Re-evalutation: 05/01/20 07:02 Impression: Back pain, headache, body aches, multiple spider bites. Noted mild white count with no other findings -- reviewed past WBC and patient consistently has a WBC around 15. Rest of her labs are reassuring including her urinalysis which is negative for urinary tract infection. Offered her a chest x-ray as well as influenza testing and re-swab for COVID. Patient declines because she i s not having any upper respiratory symptomology. Gave her 15 mg of Toradol. She would like another 15 Toradol. Plan will be for her to monitor her self closely. She is to return if she has any worsening symptoms. She agrees with the plan - Vital Signs Vital signs: Temp Pulse Resp BP Pulse Ox 98 F 74 20 114/73 98 05/01/20 04:05 05/01/20 04:05 05/01/20 04:05 05/01/20 04:05 05/01/20 04:05 - Laboratory Result Diagrams: 05/01/20 06:00 05/01/20 06:00 Laboratory results interpreted by me: 05/01/20 05/01/20 06:00 06:00 WBC 15.1 H Absolute Lymphs (auto) 5.9 H Chloride 110 H AST 13 L Total Protein 5.7 L Discharge - Discharge Clinical Impression: Back pain Qualifiers: Back pain location: back pain in unspecified location Chronicity: acute Back pain laterality: bilateral Qualified Code(s): M54.9 - Dorsalgia, unspecified Headache Qualifiers: Headache type: unspecified Headache chronicity pattern: acute headache Intractability: not intractable Qualified Code(s): R51.9 - Headache, unspecified Insect bite Qualifiers: Encounter type: initial encounter Site of insect bite: hand Laterality: unspecified laterality Qualified Code(s): S60.568G - Insect bite (nonvenomous) of unspecified hand, initial encounter Condition: Stable Disposition: HOME, SELF-CARE Additional Instructions: Use muscle relaxant as prescribed. Follow-up with primary care. Use topical antibiotic for your spider bites. Return if you have any worsening symptoms. Today urinalysis was very reassuring. He did have a mild increase in your white count but all your other lab work was reassuring. Rest at home. Push fluids. Prescriptions: Mupirocin [Bactroban 2% Ointment 22 gm] 1 applic TP TID #1 tube Methocarbamol [Robaxin 500 mg Tablet] 500 mg PO QID PRN #20 tablet PRN Reason: Referrals: JASVIR OLEARY MD [Primary Care Provider] - Follow up in 3-5 days
[2020-05-01 06:19] LABS: ABSOLUTE BASOPHILS # (AUTO) 0.2 10^3/uL (0.0-0.2); ABSOLUTE EOSINOPHILS # (AUTO) 0.3 10^3/uL (0.0-0.6); ABSOLUTE LYMPHOCYTES (AUTO) 5.9 10^3/uL (0.5-4.7); ABSOLUTE MONOCYTES (AUTO) 0.9 10^3/uL (0.1-1.4); ABSOLUTE NEUT (AUTO) 7.8 10^3/uL (1.7-8.2); EOSINOPHILS % (AUTO) 1.8 % (0-6); HEMATOCRIT 39.7 % (36.0-47.0); LYMPHOCYTES % (AUTO) 39.3 % (13-45); MEAN CORPUSCULAR HEMOGLOBIN 31.8 pg (27.0-33.4); MEAN CORPUSCULAR HGB CONC 35.2 g/dL (32.0-36.0); MEAN CORPUSCULAR VOLUME 91 fl (80-97); PLATELET COUNT 248 10^3/uL (150-450); RED BLOOD COUNT 4.39 10^6/uL (3.72-5.28); RED CELL DISTRIBUTION WIDTH 12.7 % (11.5-14.0); SEGMENTED NEUTROPHILS % (AUTO) 51.9 % (42-78); TOTAL CELLS COUNTED % (AUTO) 100 %; WHITE BLOOD COUNT 15.1 10^3/uL (4.0-10.5)
[2020-05-01 06:38] LABS: ALBUMIN 3.6 g/dL (3.5-5.0); ALKALINE PHOSPHATASE 56 U/L (38-126); ANION GAP 8 (5-19); ASPARTATE AMINO TRANSFERASE 13 U/L (14-36); BILIRUBIN,DIRECT 0.2 mg/dL (0.0-0.4); BILIRUBIN,TOTAL 0.3 mg/dL (0.2-1.3); BLOOD UREA NITROGEN 14 mg/dL (7-20); CALCIUM 9.4 mg/dL (8.4-10.2); CARBON DIOXIDE 22 mmol/L (22-30); CHLORIDE 110 mmol/L (98-107); GLUCOSE 93 mg/dL (75-110); POTASSIUM 4.1 mmol/L (3.6-5.0); TOTAL PROTEIN 5.7 g/dL (6.3-8.2)
[2020-05-01 07:20] VITALS: BP 120/78
== END 2020-05-01 07:32 | disposition home or self-care (01) ==
LOC: ER 03:37
DX: S60.569A Insect bite (nonvenomous) of unspecified hand, initial encounter (principal); R51.9 Headache, unspecified; M54.9 Dorsalgia, unspecified; M79.10 Myalgia, unspecified site; M25.551 Pain in right hip; M25.552 Pain in left hip; R53.81 Other malaise; W57.XXXA Bitten or stung by nonvenomous insect and other nonvenomous arthropods, initial encounter; Z79.899 Other long term (current) drug therapy; F17.200 Nicotine dependence, unspecified, uncomplicated
CPT/HCPCS: 99284; 96361; 96374; 96375; 36415; 83735; 85025; 81025; 80053; 81001; J1885; J7040; 87086

== ENCOUNTER 2020-06-28 02:45 | Emergency (ER) | payer MEDICAID ==
[2020-06-28 02:50] VITALS: BP 135/97
== END 2020-06-28 04:32 | disposition left against medical advice (07) ==
LOC: ER 02:45
DX: Z53.21 Procedure and treatment not carried out due to patient leaving prior to being seen by health care provider (principal)